=== PATIENT | female | born 1990 | race Caucasian/White ===

== ENCOUNTER 2017-07-18 11:38 | Emergency (ER) | payer OTHER ==
[2017-07-18 13:08] LABS: INFLUENZA A AMPLIFICATION POSITIVE (NEGATIVE); INFLUENZA B AMPLIFICATION NEGATIVE (NEGATIVE); RSV AMPLIFICATION NEGATIVE (NEGATIVE)
== END 2017-07-18 14:18 | disposition home or self-care (01) ==
LOC: M ED 11:38
DX: J09.X2 Influenza due to identified novel influenza A virus with other respiratory manifestations (principal); Z87.01 Personal history of pneumonia (recurrent); K58.9 Irritable bowel syndrome, unspecified; F41.9 Anxiety disorder, unspecified; E53.8 Deficiency of other specified B group vitamins; Z79.899 Other long term (current) drug therapy
CPT/HCPCS: 87430

== ENCOUNTER 2018-11-01 11:29 | Emergency (ER) | payer OTHER ==
[~2018-11-01] VITALS: Ht 167.6 cm; Wt 100.0 kg
[~2018-11-01 11:29] MED LIST: BUPR300T34 PO; CETI10TA PO; DICY10CA13 PO; IBUP-1114 PO; OSEL75CA PO; OXYC1TAB23 PO; PRED20TA PO; PRENTAB9 PO; PROAAER10 INH; TESS100C PO; TYLE325T5 PO; VITA10002 PO; VITA50005 PO
[2018-11-01] MEDS ORDERED: LOES1TAB7 (11:35)
[2018-11-01 12:16] LABS: BASO % 0.6 % (0.0-1.0); EOS # 0.1 10^3/uL (0.0-0.50); EOS % 1.3 % (0.0-3.0); HEMATOCRIT 40.5 % (36.0-47.0); HEMOGLOBIN 13.6 g/dl (12.0-15.5); LYMPH # 1.8 10^3/uL (1.5-6.5); LYMPH % 34.6 % (24.0-44.0); MEAN CORPUSCULAR HEMOGLOBIN 29.7 pg (27.0-33.0); MEAN CORPUSCULAR HGB CONC 33.6 g/dl (32.0-36.5); MEAN CORPUSCULAR VOLUME 88.4 fl (80.0-96.0); MONO # 0.3 10^3/uL (0.0-0.8); MONO % 5.6 % (0.0-5.0); NEUTROPHILS # 3.1 10^3/uL (1.8-7.7); NEUTROPHILS % 57.7 % (36.0-66.0); PLATELET COUNT, AUTOMATED 260 10^3/uL (150-450); RED BLOOD COUNT 4.58 10^6/uL (4.00-5.40); WHITE BLOOD COUNT 5.3 10^3/uL (4.0-10.0)
[2018-11-01 12:42] LABS: BLOOD UREA NITROGEN 8 MG/DL (7-18); CALCIUM LEVEL 8.5 MG/DL (8.5-10.1); CARBON DIOXIDE LEVEL 26 MEQ/L (21-32); CHLORIDE LEVEL 108 MEQ/L (98-107); CREATININE FOR GFR 0.76 MG/DL (0.55-1.30); GLOMERULAR FILTRATION RATE > 60.0 (>60); GLUCOSE, FASTING 86 MG/DL (70-100); POTASSIUM SERUM 4.3 MEQ/L (3.5-5.1); SODIUM LEVEL 141 MEQ/L (136-145)
[2018-11-01 12:44] LABS: HCG, SERUM QUALITATIVE NEGATIVE (NEGATIVE)
--- NOTE | 2018-11-01 14:27 | REP ---
Pelvic sonography: History: Irregular vaginal bleeding. Passing tissue. Findings: Transabdominal and transvaginal scanning are performed. Uterine dimensions are 8.6 x 4.5 x 5.8 cm. Endometrial echo 0.8 cm thick. No focal uterine mass is seen. No free fluid is noted. Normal ovaries are seen bilaterally. Right ovary dimensions are 3.0 x 1.5 x 2.1 cm. The left ovary measures 2.5 x 2.2 x 2.2 cm. Impression: No morphologic abnormality. Electronically Signed by Connor Potts MD 11/01/2018 02:18 P
[2018-11-01 14:48] VITALS: BP 124/76
== END 2018-11-01 14:48 | disposition home or self-care (01) ==
LOC: M ED 11:29
DX: N93.9 Abnormal uterine and vaginal bleeding, unspecified (principal); Z87.59 Personal history of other complications of pregnancy, childbirth and the puerperium; K58.9 Irritable bowel syndrome, unspecified; Z86.19 Personal history of other infectious and parasitic diseases; Z79.899 Other long term (current) drug therapy

== ENCOUNTER → 2019-01-08 | Outpatient (CLI) | payer OTHER ==
[~2019-01-08] MED LIST changes: +CYAN100049 PO; +LOES1TAB7; -VITA10002 PO
[2019-01-08 14:04] LABS: C REACTIVE PROTEIN QUANTITATIV < 0.30 MG/DL (0.00-0.30); COMPLEMENT C3 151 MG/DL (90-180); COMPLEMENT C4 24 MG/DL (10-40)
[2019-01-08 14:05] LABS: TOTAL PROTEIN,RANDOM URINE 13.1 MG/DL (0.0-12.0)
--- NOTE | 2019-01-09 04:15 | REP ---
Clinical: Arthralgia. Technique: AP, lateral, bilateral oblique and sunrise views of the right and left knee (10 views total) . Findings: Right knee - The osseous structures and joint spaces are intact and normal. There is no evidence for acute fracture or dislocation. No joint effusion is appreciated. Surrounding soft tissues are unremarkable. No subcutaneous emphysema or radiodense foreign body. Left knee - The osseous structures and joint spaces are intact and normal. There is no evidence for acute fracture or dislocation. No joint effusion is appreciated. Surrounding soft tissues are unremarkable. No subcutaneous emphysema or radiodense foreign body. Impression: Normal bilateral knee examination. No overt osteoarthritic degenerative changes are appreciated. Electronically Signed by Alphonse Wagner MD 01/09/2019 04:07 A
--- NOTE | 2019-01-09 04:24 | REP ---
Clinical: Arthralgia. Technique: AP, lateral, bilateral oblique views of the right and left hand (eight views total). Findings: Right hand - osseous structures, joint spaces, and surrounding soft tissues are essentially normal for age. No overt arthritic changes are appreciated. Left hand - osseous structures, joint spaces, and surrounding soft tissues are essentially normal for age. No overt arthritic changes are appreciated. Impression: Normal age appropriate bilateral hand radiographs. Electronically Signed by Alphonse Wagner MD 01/09/2019 04:15 A
--- NOTE | 2019-01-09 04:25 | REP ---
Clinical: Arthralgia Technique: Single AP weightbearing view of the bilateral knees. Findings: Joint spaces are symmetric, intact, and normal. Surrounding soft tissues are unremarkable. Impression: Normal examination. Electronically Signed by Alphonse Wagner MD 01/09/2019 04:16 A
[2019-01-11 14:51] LABS: ANA (HEP2) Positive (.); ANTI DS-DNA AB <1:10 titer (.); RNP ANTIBODY 0.3 AI (0.0-0.9); SMITHS ANTIBODY < 0.2 AI (0.0-0.9); SSA SJOGRENS A <0.2 AI (0.0-0.9); SSB SJOGRENS B <0.2 AI (0.0-0.9)
== END ==
LOC: M LAB 11:28
PROVIDERS: ATTEND Internal Medicine Rheumatology
DX: R76.8 Other specified abnormal immunological findings in serum (principal); M25.50 Pain in unspecified joint
CPT/HCPCS: 36415; 73130; 73564; 82570; 84156; 85652; 86038; 86140; 86160; 86225; 86235; 86255; G0463